=== PATIENT | male | born 1960 | race Caucasian/White ===

== ENCOUNTER → 2019-10-04 | Outpatient (CLI) | payer OTHER ==
[~2019-10-04] MED LIST: ASPIR 8181 MG PO; BYSTOLIC 5 MG5 M1 PO; CLARITIN10 MG PO; PROTONIX40 M2 PO
== END ==
LOC: ULTRA 12:00
DX: N50.3 Cyst of epididymis (principal); N43.3 Hydrocele, unspecified; R60.0 Localized edema